=== PATIENT | male | born 1965 | race Caucasian/White ===

== ENCOUNTER 2017-03-03 09:27 | Emergency (ER) | payer BC ==
--- NOTE | ~2017-03-03 | CR169 ---
[facility]. [facility] A Service of [facility] & [facility] RADIOLOGY TEXT RESULTS PATIENT: CORONA TEJADA LOCATION: SED : 69 UNIT #: [id number] AGE: [address]: Ca Early APRN SEX: M ORDER DR: [id number] [place] [id number] E MR#: [id number] Acc #: [id number] NAME: CORONA TEJADA : 1965 SEX: M STUDY DATE/TIME: 03/03/2017 9:38 UNIT: SED ROOM: STUDY DESCRIPTION: CR Knee 2 Views Lt Attending Physician: Ca Early A.P.R.N. Ordering Physician: Armand Cutler M.D. MEDICAL IMAGING REPORT This report is preliminary unless electronic signature is present. EXAM Left knee 2 views INDICATION Left knee pain since falling last night. No comparisons. FINDINGS There is no fracture or malalignment. No joint effusion. The soft tissue structures are unremarkable. IMPRESSION Negative. Dictated by... Andrea Carias M.D. THIS IS AN ELECTRONICALLY VERIFIED REPORT Andrea Carias M.D. at 03/04/2017 7:34 AM ARS/manjit TD: 03/04/2017 06:47 JOB #: [id number] MEDICAL IMAGING REPORT Page 1 of 1
[~2017-03-03 09:27] MED LIST: BACTRIM DS TABL1 TAB PO; VICODIN 5/500 T1 TAB PO
== END 2017-03-03 10:35 | disposition home or self-care (01) ==
LOC: SED 09:27
DX: S80.02XA Contusion of left knee, initial encounter (principal); W17.89XA Other fall from one level to another, initial encounter; Y92.009 Unspecified place in unspecified non-institutional (private) residence as the place of occurrence of the external cause
CPT/HCPCS: 29530; 73560; 99283